=== PATIENT | female | born 1945 | race Caucasian/White ===

== ENCOUNTER 2023-08-11 13:27 | Outpatient (OUT) | payer OTHER, SELFPAY ==
--- NOTE | 2023-08-11 14:20 | P.CN_ITS ---
Consult Note: HPI Data of Consult Patient: new to practice Consult date: 08/11/23 Requesting Physician: Felix Mendosa MD Primary Care Provider: RYAN DOHERTY Consult Narrative Reason for consult: low back, bilateral hip pain Narrative: 77yof who presents for evaluation. notes worsening bilateral hip pain, R>L. also some pain in right knee, which improved after right meniscectomy, but still persists. right hip imaging reviewed, which does not show any acute pathology. continues in series of provider directed home exercises >6 weeks, with minimal benefit. has tried otc NSAIDs, without much benefit. does not like to take medications. cc:: CC: Felix Mendosa MD Review of Systems ROS Status of ROS 10 or more systems reviewed and unremark able except as noted in history and below Exam Narrative Exam Narrative: Psych-alert and oriented x 3. Attentive and appropriate, constitutionally normal, displays normal mood and affect per situation.? There are no obvious deficits in memory, reasoning, or intellect.? Skin-no obvious rashes, bruising, erythema noted to the patient's area of pain. Extremities- extremities are warm with minimal edema and palpable pulses. Sacroiliac -bilateral tenderness to palpation over bilateral PSIS. Jenaro's maneuver positive bilaterally. Positive thigh thrust bilaterally. Coordination remains intact.? Gait remains non-antalgic. Assessment and Plan Assessment and Plan (1) Sacroiliac joint dysfunction of both sides: Plan 77yof who presents for evaluation. failed conservative measures, as noted. will have her undergo lumbar and sacral xr. given her pain, will also have her undergo bilateral sij injections under fluoroscopic guidance. she is in agreement. meds reviewed, no changes. follow up after procedure.
== END 2023-08-11 13:28 | disposition home or self-care (01) ==
PROVIDERS: PCP Family Medicine; Visit Provider Anesthesiology
DX: M46.1 Sacroiliitis, not elsewhere classified (principal); M53.3 Sacrococcygeal disorders, not elsewhere classified
CPT/HCPCS: 72114; 72220; G0463

== ENCOUNTER 2023-08-11 14:26 | Outpatient (OUT) | payer OTHER, SELFPAY ==
--- NOTE | 2023-08-11 14:33 | XR_ITS ---
The [place] [address] Patient Name: CHRISTINA KAY MRN: [id number] date: 1945 Sex: F Assigned Patient Location: [facility] Current Patient Location: Accession/Order Number: [id number] Exam Date: 08/11/2023 14:38 Report Date: 08/11/2023 15:35 At the request of: DELORIS MADRID Procedure: XR lumbar spine 6V w bending EXAMINATION: XR lumbar spine 6V w bending, XR sacrum coccyx min 2V HISTORY: Sacroiliitis COMPARISON: No relevant comparison available. FINDINGS: BONES: Normal alignment with no acute fracture or spondylolisthesis. Mild to moderate degenerative spondylosis and facet osteoarthropathy DISC SPACES: Multilevel disc space narrowing with endplate sclerosis. Disc collapse L5-S1 PARASPINOUS: Negative. No paraspinous abnormality is seen. OTHER: No transient spondylolisthesis with flexion or extension XR/XR lumbar spine 6V w bending IMPRESSION: Mild to moderate diffuse degenerative changes No dynamic instability Electronically authenticated by: KRUNAL REDMOND Date: 08/11/2023 15:35
--- NOTE | 2023-08-11 14:33 | XR_ITS ---
The [address] [address] Patient Name: CHRISTINA KAY MRN: [id number] date: 1945 Sex: F Assigned Patient Location: Current Patient Location: Accession/Order Number: [id number] Exam Date: 08/11/2023 14:38 Report Date: 08/11/2023 15:35 At the request of: DELORIS MADRID Procedure: XR sacrum coccyx min 2V EXAMINATION: XR lumbar spine 6V w bending, XR sacrum coccyx min 2V HISTORY: Sacroiliitis COMPARISON: No relevant comparison available. FINDINGS: BONES: Normal alignment with no acute fracture or spondylolisthesis. Mild to moderate degenerative spondylosis and facet osteoarthropathy DISC SPACES: Multilevel disc space narrowing with endplate sclerosis. Disc collapse L5-S1 PARASPINOUS: Negative. No paraspinous abnormality is seen. OTHER: No transient spondylolisthesis with flexion or extension XR/XR sacrum coccyx min 2V IMPRESSION: Mild to moderate diffuse degenerative changes No dynamic instability Electronically authenticated by: KRUNAL REDMOND Date: 08/11/2023 15:35
== END 2023-08-11 14:27 | disposition home or self-care (01) ==
LOC: RAD 14:27
PROVIDERS: PCP Family Medicine; Visit Provider Anesthesiology
DX: M46.1 Sacroiliitis, not elsewhere classified (principal)
CPT/HCPCS: 72114; 72220

== ENCOUNTER 2023-08-25 08:12 | Day surgery (SDC) | payer OTHER, SELFPAY ==
--- OUTSIDE RECORDS SUMMARY | 2023-08-25 08:14 | XMS_ITS | CCD ---
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 [employer] Name Role Phone DR RYAN DOHERTY Attending Unavailable BESSY, DR DAVIS Consulting Unavailable BESSY, DR DAVIS Primary Care Unavailable BESSY, DR DAVIS Admitting Unavailable Babatunde Heck Primary Care Physician Unavail able Babatunde Heck Unavailable Unavailable ELIEL COPELAND Attending Unavailable ELIEL COPELAND Attending Unavailable ELIEL COPELAND Referring Unavailable Navya BENJAMIN, Felix Mahajan Attending Unavailable Medications Current Medications Medication Drug Class(es) Dates Sig (Normalized) Sig (Original) cephalexin 500 mg oral capsule (1 source) Cephalosporin Antibacterial Start: 04-16-2023 End: 04-23-2023 take 1 capsule by mouth every twelve hours cephalexin oral capsule 500 mg 04/16/2023 04/23/2023 take 1 capsule (500 mg) by oral route every 12 hours for 7 days Completed/Discontinued Medications Medication Drug Class(es) Dates Sig (Normalized) Sig (Original) acetaminophen 325 mg / HYDROcodone bitartrate 5 mg oral tablet (1 source) Opioid Agonist take 1 tablet by mouth every six hours as needed for pain hydrocodone 5 mg-acetaminophen 325 mg tablet take 1 tablet by oral route every 6 hours as needed for pain omeprazole 20 mg delayed release oral capsule (1 source) Proton Pump Inhibitor take 1 capsule by mouth once daily before mealtime omeprazole 20 mg capsule,delayed release take 1 capsule (20 mg) by oral route once daily before a meal sertraline 50 mg oral tablet (1 source) Serotonin Reuptake Inhibitor take 1 tablet by mouth once daily Zoloft 50 mg tablet take 1 tablet (50 mg) by oral route once daily simvastatin 40 mg oral tablet (1 source) HMG-CoA Reductase Inhibitor take 1 tablet by mouth once daily in the evening simvastatin 40 mg tablet take 1 tablet (40 mg) by oral route once daily in the evening Problems Problem Classification Problem Date Documented Da te Episodic/Chronic Immunizations and screening for infectious disease (1 source) Encounter for immunization; Translations: [ENCOUNTER FOR IMMUNIZATION] Onset: 03-28-2021 Episodic Other non-epithelial cancer of skin (3 sources) Unspecified malignant neoplasm of skin, unspecified; Translations: [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 TECHNIQUE: Routine non-contrast MRI of the shoulder , right side COMPARISON: Radiographs 07/09/2021. RESULT: Rotator Cuff Tendons: Full-thickness tearing involving essentially entire supraspinatus measuring around 1.5 cm in AP dimension, with possible few intact fibers with underlying tendinosis, with slight medial retraction of the torn fibers to near the acromion. Mild to moderate tendinosis involving infraspinatus and subscapularis, without tear. Teres minor appears intact. Long Head Biceps Tendon: Intact with appropriate location. Muscle: Muscle bulk and signal intensity are within normal limits. Labrum: Fraying/tearing especially superiorly, without displaced tear. Bones and Marrow: No evidence of fracture or bone marrow replacing process. Glenohumeral Joint: Osteophytes without measurable full-thickness chondral defect. Small joint effusion. Acromioclavicular Joint: Mild to moderate degenerative changes with undersurface osteophytes. Other: Fluid extending into the subacromial subdeltoid bursa. IMPRESSION: Full-thickness tearing involving essentially entire supraspinatus. Report reported and signed by Bryce Abdi on 02/18/2022 1312 Normal [facility] Research And Evaluation Manager SCREENING MAMMOGRAM W/OG, BILATERAL*on 08-17-2021 SCREENING MAMMOGRAM W/OG, BILATERAL* COMPARISON: June 12, 2020, December 29, 2019, December 20, 2019 TECHNIQUE: 2D and 3D Tomosynthesis of the right and left breasts was performed. FINDINGS: Breast composition demonstrates scattered fibroglandular densities. Overall appearance is stable. No suspicious microcalcifications, asymmetry, architectural distortion, or associated features are present. IMPRESSION: BIRADS 1: Negative mammogram Board Certified Radiologist. Accredited by the ACR and FDA. MAMMOGRAPHY IS VERY IMPORTANT TO YOUR HEALTH. THE CURRENT [place] [employer] AND [employer] GUIDELINES RECOMMENDS ANNUAL MAMMOGRAPHY BEGINNING AT AGE 40 THIS FACILITY USES A REMINDER SYSTEM TO ENSURE ALL PATIENTS RECEIVE REMINDER NOTIFICATIONS AT THE APPROPRIATE TIME BASED ON THE RECOMMENDATIONS OF THIS EXAM. Report reported and signed by Toni Stubbs on 08/17/2021 1227 Normal [facility] XR Bone Density (DEXA)on XR Bone Density (DEXA) EXAM: Dual Femur Bone Density FINDINGS: Dual Femur bone density obtained with a Jumptap whole body system: RegionBMDYgestigong-AdultA ge-Matched Total(g/cm2)(%)T-Scor e(%)Z-Score Mean0.80487-2.09518.8 Impression: The mean BMD and corresponding T-score indicated above indicate Low Bone Mass (Osteopenia) and places the patient at a mild to moderate increased risk for fracture. There may be a future risk of developing osteoporosis. EXAM: AP Lumbar Bone Density FINDINGS: AP Spine bone density obtained with a Jumptap whole body system: RegionBMFuelFilmg-AdultA ge-Matched Total(g/cm2)(%)T-Scor e(%)Z-Score L1-L40.18273-2.66459. 3 Impression: The mean BMD and corresponding T-score indicated above indicate Low Bone Mass (Osteopenia) and places the patient at a mild to moderate increased risk for fracture. There may be a future risk of developing osteoporosis. Comment: The T-score is the primary focus of the interpretation of a patient???s bone mineral density measurement. The T-score is the number of standard deviations an individual is above or below the mean value for a young female having normal bone mass. The WHO defines osteoporosis based on the T-score value??? +1.0 to ???0.9: Normal bone mass -1.0 to -2.5: Osteopenia and thus may be at future risk of fracture -2.6 to ???5: Osteoporosis and ???at significantly increased risk of fracture??? A Z-Score of -2.0 or lower is defined as ???below the expected range for age??? and a Z-Score above -2.0 is ???within the expected range for age.??? Osteoporosis cannot be diagnosed in men under the age of 50 on the basis of BMD alone. Per 2019 ISCD guidelines, Z-Scores (not T-Scores) are preferred when reporting data in premenopausal females and males less than 50 years of age. Report reported and signed by Toni Stubbs on 08/17/2021 1335 Normal [facility] Comprehensive Metabolic Pane jareth 08-02-2021 Albumin [Mass/Vol] 4.6 g/dL Normal 3.6-5.1 [facility] Comment on above: Performed By: #### L IPD, CMP #### [facility] [address], [place] [id number] Albumin/Globulin [Mass ratio] 2.4 {ratio} Normal 1.0-2.5 [facility] Comment on above: Performed By: #### L IPD, CMP #### [facility] [address], [place] [id number] ALP [Catalytic activity/Vol] 76 U/L Normal 35-119 [facility] Comment on above: Performed By: #### L IPD, CMP #### [facility] [address], [place] [id number] ALT [Catalytic activity/Vol] 13 U/L Normal 6-33 [facility] Comment on above: Result Comment: 05/02 Female reference range changed. Performed By: #### L IPD, CMP #### [facility] [address], [place] [id number] Anion gap [Moles/Vol] 21 mmol/L High 12-20 [facility] Comment on above: Result Comment: Effe ctive 06/07/2019 reference range changed. Performed By: #### L IPD, CMP #### [facility] [address], [place] [id number] AST [Catalytic activity/Vol] 16 U/L Normal 9-34 [facility] Comment on above: Performed By: #### L IPD, CMP #### [facility] [address], [place] [id number] Bilirubin [Mass/Vol] 0.38 mg/dL Normal 0.30-1.20 [facility] Comment on above: Performed By: #### L IPD, CMP #### [facility] [address], [place] [id number] BUN/CREA 23 Ratio High 6-22 [facility] Comment on above: Performed By: #### L IPD, CMP #### [facility] [address], [place] [id number] Calcium [Mass/Vol] 9.4 mg/dL Normal 8.6-10.2 [facility] Comment on above: Performed By: #### L IPD, CMP #### [facility] [address], [place] [id number] Chloride [Moles/Vol] 107 mmol/L Normal 98-107 [facility] Comment on above: Performed By: #### L IPD, CMP #### [facility] [address], [place] [id number] CO2 [Moles/Vol] 22 mmol/L Normal 20-31 [facility] Comment on above: Performed By: #### L IPD, CMP #### [facility] [address], [place] [id number] Creatinine [Mass/Vol] 0.8 mg/dL Normal 0.6-1.4 [facility] Comment on above: Performed By: #### L IPD, CMP #### [facility] [address], [place] [id number] eGFRAA 89 mL/min/1.73m2 Normal >60 [facility] Specialist Comment on above: Performed By: #### L IPD, CMP #### [facility] [address], [place] [id number] eGFRNAA 73 mL/min/1.73m2 Normal >60 [facility] Specialist Comment on above: Performed By: #### L IPD, CMP #### [facility] [address], [place] [id number] Globulin (S) [Mass/Vol] 1.9 g/dL Normal 1.9-3.7 [facility] Comment on above: Performed By: #### L IPD, CMP #### [facility] [address], [place] [id number] Glucose [Mass/Vol] 90 mg/dL Normal 65-99 [facility] Research And Evaluation Manager Comment on above: Result Comment: For FASTING Glucose --- ADA reference ranges: Normal 65-99 mg/dl Prediabetes 100-125 Diabetes >/= 126 Performed By: #### L IPD, CMP #### [facility] [address], [place] [id number] Potassium [Moles/Vol] 4.1 mmol/L Normal 3.5-5.5 [facility] Research And Evaluation Manager Comment on above: Performed By: #### L IPD, CMP #### [facility] [address], [place] [id number] Protein [Mass/Vol] 6.5 g/dL Normal 6.1-8.1 [facility] Research And Evaluation Manager Comment on above: Performed By: #### L IPD, CMP #### [facility] [address], [place] [id number] Sodium [Moles/Vol] 145 mmol/L Normal 135-146 [facility] Research And Evaluation Manager Comment on above: Performed By: #### L IPD, CMP #### [facility] [address], [place] [id number] Urea nitrogen [Mass/Vol] 18 mg/dL Normal 7-25 [facility] Research And Evaluation Manager Comment on above: Performed By: #### L IPD, CMP #### [facility] [address], [place] [id number] Lipid Panelon 08-02-2021 Cholesterol [Mass/Vol] 191 mg/dL Normal 125-200 [facility] Research And Evaluation Manager Comment on above: Result Comment: Low risk < 200mg/dL Borderline risk 201-239 mg/dl High risk > or equal to 240 Performed By: #### L IPD, CMP #### [facility] [address], [place] [id number] Cholesterol in HDL [Mass/Vol] 66 mg/dL Normal >40 [facility] Research And Evaluation Manager Comment on above: Result Comment: High Cardiovascular Risk HDL <40 mg/dL Low Cardiovascular Risk HDL > or equal to 60 mg/dl Performed By: #### L IPD, CMP #### [facility] [address] [facility] [place] [place] [id number] Cholesterol in LDL [Mass/Vol] 104 mg/dL Normal [facility] Research And Evaluation Manager Comment on above: Result Comment: LDL ATP III CLASSIFICATION LDL less than 100 mg/dl Optimal LDL 100-129 mg/dl Near or above optimal LDL 130-159 Borderline high LDL 160-189 High LDL greater than 189 mg/dl Very High Performed By: #### L IPD, CMP #### [facility] [address], [place] [id number] Cholesterol in VLDL [Mass/Vol] 21 mg/dL Normal [facility] Research And Evaluation Manager Comment on above: Performed By: #### L IPD, CMP #### [facility] [address], [place] [id number] Cholesterol.total/C holesterol in HDL [Mass ratio] 3 {ratio} Normal [facility] Research And Evaluation Manager Comment on above: Performed By: #### L IPD, CMP #### [facility] [address], [place] [id number] Triglyceride [Mass/Vol] 107 mg/dL Normal 30-150 [facility] Research And Evaluation Manager Comment on above: Result Comment: TRIG ATPIII CLASSIFICATIONS TRIG less than 150 mg/dl Normal TRIG 150-199 mg/dl Borderline High TRIG 200-500 mg/dl High TRIG greather than 500 mg/dl Very High Performed By: #### L IPD, CMP #### [facility] [address], [place] [id number] Encounters Encounter Date Encounter Type Care Provider Facility Start: 08-11-2023 End: 08-12-2023 ambulatory Felix Mendosa MD Facility: [facility] Start: 07-18-2023 End: 07-19-2023 ambulatory ELIEL COPELAND Not Available Start: 06-06-2023 ambulatory ELIEL COPELAND Not Janey ilable Start: 03-20-2021 End: 03-20-[address] RYAN DOHERTY Facility:[facility] Procedures Date Procedure Procedure Detail Performing Clinician Start: 04-16-2023 Adjt tis trnsfr/rear rgmt e/n/e/l dfct 10 sq cm/< Babatunde Heck Other Start: 04-16-2023 Docrev [facility] meds by e lig clin Babatunde Heck Start: 04-16-2023 Mohs micrographic h/n/h/f/g each addl stage Babatunde Heck Start: 04-16-2023 [facility] [place] [place] surgery Babatunde morgan Payers Date Payer Category Payer Medicare 2022 Unknown [id number] 1957 Medicare [id number] 1957 Private Health Insurance [facility] [id number] 1945 Unknown [id number] [id number] 1945 Unknown [id number] 2.16.84 [id number] 1945 Unknown [id number] 2.16.84 [id number] 1945 Unknown [id number] 1945 Unknown [id number] Summary Purpose Family History No Family History Records FoundNo Family History Records FoundNo Family History Records FoundNo Family History Records Found Advance Directives No Advanced Directives Records FoundNo Advanced Directives Records FoundNo Advanced Directives Records FoundNo Advanced Directives Records Found Additional Source Comments INFORMATION SOURCE (unrecogn ized section and content) DATE CREATED AUTHOR [facility]29/2021 [facility] DATE CREATED AUTHOR AUTHOR'S ORGANIZ ATION 03/02/2022 [facility] dical Specialist DATE CREATED AUTHOR AUTHOR'S ORGANIZ ATION 07/23/2023 [facility] dical Specialists [facility] DATE CREATED AUTHOR AUTHOR'S ORGANIZ ATION 08/13/2023 [facility] FOR RECORDS PERTAINING TO PATIENTS WHO ARE OR HAVE BEEN ENROLLED IN A CHEMICAL DEPENDENCY/SUBSTANCEABUSE PROGRAM, SOME INFORMATION MAY BE OMITTED. This clinical summary was aggregated from multiple sources. Caution should be exercised in using it in the provision of clinical care. This summary normalizes information from multiple sources, and as a consequence, information in this document may materially change the coding, format and clinical context of patient data. In addition, data may be omitted in some cases. CLINICAL DECISIONS SHOULD BE BASED ON THE PRIMARY CLINICAL RECORDS. [facility]. provides no warranty or guarantee of the accuracy or completeness of information in this document.
[2023-08-25 08:39] VITALS: BP 136/79; PULSE 87; RESP 16; TEMP 36.1; O2SAT 95
[2023-08-25] MEDS: LIDOCAINE HCL 2% PF 100 MG/5 ML VIAL 2 ML INJ (09:46)
[2023-08-25] MEDS: IOHEXOL 240 MG/ML - 10 ML VIAL 24 MG INJ (09:46)
[2023-08-25] MEDS: TRIAMCINOLONE ACETONIDE 40 MG/ML VIAL 80 MG INJ ×2 (09:46→09:48)
[2023-08-25] MEDS: BUPIVACAINE HCL 0.25% PF 25 MG/10 ML VIAL 4 ML INJ ×2 (09:46→09:47)
[2023-08-25] MEDS: IOHEXOL 240 MG/ML - 10 ML VIAL 72 MG INJ (09:47)
[2023-08-25] MEDS: LIDOCAINE HCL 2% PF 100 MG/5 ML VIAL 4 ML INJ (09:47)
[2023-08-25 09:49] VITALS: BP 173/85; BP 175/83; PULSE 77; PULSE 82; RESP 18; O2SAT 95
--- NOTE | 2023-08-25 09:51 | W.PM.PROCNOT ---
Date of procedure: 08/25/23 Pre-op diagnosis: Sacroiliitis, bilateral Post-op diagnosis: same as pre-op Procedure: Procedure: Bilateral sacroiliac joint injection Medications: Bupivacaine 0.25% 3cc, kenalog 40mg x2 After informed consent was obtained, the patient was brought to the medical procedure unit and placed in the prone position, when a timeout was completed verifying correct patient, procedure, site, positioning, implant, and/or special equipment.? The skin overlying the area was prepped and draped in standard sterile fashion using alcohol.? A 25-gauge needle was inserted towards the left sacroiliac joint under direct fluoroscopic imaging.? Needle tip was advanced until the joint was encountered.? We instilled a total of 3 mL of solution.? The same procedure was then completed on the right side.? Postoperatively needles were removed.? The patient tolerated the procedure well without complication.? The patient reported reduction in pain symptoms postoperatively. Anesthesia: Local Surgeon: Felix Mendosa Pathology: none sent Condition: stable Disposition: no change
== END 2023-08-25 09:51 | disposition home or self-care (01) ==
PROVIDERS: PCP Family Medicine; Visit Provider Anesthesiology
DX: M46.1 Sacroiliitis, not elsewhere classified (principal)
CPT/HCPCS: 27096; Q9966

== ENCOUNTER 2023-09-03 14:40 | Outpatient (OUT) | payer OTHER, SELFPAY ==
--- NOTE | 2023-09-03 14:56 | PM.CN ---
Consult Note: HPI Data of Consult Patient: known to practice within the last 3 years Requesting Physician: Violette Huston NP Primary Care Provider: RYAN DOHERTY Consult Narrative Reason for consult: low back, bilateral hip pain Narrative: 77yof who presents for evaluation. notes worsening bilateral hip pain, R>L. also some pain in right knee, which improved after right meniscectomy, but still persists. right hip imaging reviewed, which does not show any acute pathology. continues in series of provider directed home exercises >6 weeks, with minimal benefit. has tried otc NSAIDs, without much benefit. does not like to take medications. Recently underwent bilateral SIJ injection with 100% improvement in pain and functional ability, 0/10 pain constantly, HANNA 0%. cc:: CC: Violette Huston NP Review of Systems ROS Status of ROS 10 or more systems reviewed and unremarkable except as noted in history and below [facility] Medical History (Updated 08/20/23 @ 08:50 by Yana Demarco RN) History of cardiovascular stress test ?Z92.89 - Personal history of other medical treatment (ICD-10) Tarsal tunnel syndrome ?G57.50 - Tarsal tunnel syndrome, unspecified lower limb (ICD-10) Heartburn ?R12 - Heartburn (ICD-10) COPD (chronic obstructive pulmonary disease) ?J44.9 - Chronic obstructive pulmonary disease, unspecified (ICD-10) Asthma ?J45.909 - Unspecified asthma, uncomplicated (ICD-10) Palpitations ?R00.2 - Palpitations (ICD-10) Surgical History History of knee surgery ?Z98.890 - Other specified postprocedural states (ICD-10) History of shoulder surgery ?Z98.890 - Other specified postprocedural states (ICD-10) History of blepharoplasty ?Z98.890 - Other specified postprocedural states (ICD-10) History of breast biopsy ?Z98.890 - Other specified postprocedural states (ICD-10) Meds Home Medications and Allergies Home Medications ?Medication ?Instructions ?Recorded ?Confirmed ?Type acetaminophen 650 mg 650 mg PO Q8H 08/11/23 08/25/23 History tablet,extended release (Tylenol Arthritis Pain) cholecalciferol (vitamin D3) 125 125 mcg PO BID 08/11/23 08/25/23 History mcg (5,000 unit) capsule omeprazole 20 mg capsule,delayed 20 mg PO DAILY 08/11/23 08/25/23 History release sertraline 50 mg tablet 50 mg PO DAILY 08/11/23 08/25/23 History simvastatin 40 mg tablet 40 mg PO DAILY 08/11/23 08/25/23 History Allergies Allergy/AdvReac Type Severity Reaction Status Date / Time Latex, Natural Rubber Allergy Mild ITCH Verified 08/25/23 08:44 Exam Narrative Exam Narrative: Psych-alert and oriented x 3. Attentive and appropriate, constitutionally normal, displays normal mood and affect per situation.? There are no obvious deficits in memory, reasoning, or intellect.? Skin-no obvious rashes, bruising, erythema noted to the patient's area of pain. Extremities- extremities are warm with minimal edema and palpable pulses. Sacroiliac -bilateral nontender. Jenaro's maneuver negative bilaterally. negative thigh thrust bilaterally. Coordination remains intact.? Gait remains non-antalgic. Constitutional Documenting provider has reviewed patient's vital signs: yes Common normals: no apparent distress, oriented x3, healthy appearing, alert and well nourished General appearance: cooperative HENAK Common normals: normocephalic, hearing grossly normal bilaterally and moist oral mucous membranes Head and scalp: normocephalic Eye Common normals: PERRL Pupil: PERRL Neck & C-Spine Common normals: full ROM General: normal visual inspection Chest Common normals: inspection of chest normal Respiratory Common normals: normal respiratory effort, no retractions and no use of accessory muscles Neuro Common normals: oriented x3, CN's II-XII intact bilaterally, moves all extremities, no focal motor deficits, no sensory deficits noted and deep tendon reflexes 2+ bilaterally Sensorium/orientation: alert Motor exam: strength 5/5 throughout and no movement abnormalities noted Psych Common normals: mental status grossly normal, thought process normal, cooperative, affect normal, speech normal and activity/motor behavior normal Speech: normal speech Thought process: normal thought process Results Additional Findings Additional findings: If on a controlled substance or opioids, I have checked an [place] report on this patient and there are no aberrancies noted in the prescribing history.??If on a controlled substance or opioid a drug screen was completed and reviewed within the last year, and if there has not been a drug screen completed we ordered one today to monitor higher risk, state monitored pain medication use. As part of providing excellent, safe, comprehensive care, the following was completed at our patient's visit: 1. A medication reconciliation and review to ensure accurate knowledge of current/active medications, including asking our patients to inform us about any [id number] medications or herbal remedies/nutritional supplements/alternative remedies. 2. A review to specifically ensure our patients have had annual screening for screening for depression, screening for tobacco use, and screening for unhealthy alcohol use. For concerning screenings had a discussion with the patient, provided patient education, and recommended follow-up with primary care provider when appropriate. If patient noted with a risk of falling, they received education on strength, gait, and balance training to prevent future risk of falling. Assessment and Plan Assessment and Plan (1) Sacroiliac joint dysfunction of both sides: Plan significant improvement as noted above, lumbar xray reviewed with pt continue HEP as tolerated continue PRN tylenol and aleve f/u as needed
== END 2023-09-03 14:41 | disposition home or self-care (01) ==
LOC: PM 14:40
PROVIDERS: PCP Family Medicine; Visit Provider Nurse Practitioner
DX: M53.3 Sacrococcygeal disorders, not elsewhere classified (principal)
CPT/HCPCS: G0463